=== PATIENT | female | born 1950 | race Caucasian/White ===

== ENCOUNTER → 2017-05-16 | Outpatient (CLI) | payer MEDICARE ==
[~2017-05-16] MED LIST: ARIMIDEX; CIPROFLOXACIN500 M1 PO; DIFLUCAN150 MG PO; NORVASC 5 MG TAB5 MG PO; PYRIDIUM200 MG PO; SIMVASTATIN40 MG PO
== END ==
LOC: M.RAD 08:42
DX: Z12.31 Encounter for screening mammogram for malignant neoplasm of breast (principal)

== ENCOUNTER → 2018-05-24 | Outpatient (CLI) | payer MEDICARE | LOC: M.RAD 10:50 | DX: Z12.31 Encounter for screening mammogram for malignant neoplasm of breast (principal) ==

== ENCOUNTER → 2020-06-16 | Outpatient (CLI) | payer MEDICARE | LOC: M.RAD 10:06 | PROVIDERS: ATTEND Family Medicine | DX: Z12.31 Encounter for screening mammogram for malignant neoplasm of breast (principal) ==